=== PATIENT | female | born 1990 | race Two or more races ===

== ENCOUNTER 2024-06-16 09:00 | Inpatient (IN) | payer OTHER ==
[~2024-06-16] VITALS: Ht 157.5 cm; Wt 77.1 kg
[2024-06-16 10:39] LABS: PH,URINE 6.5 (5.0-8.0); URINE APPEARANCE Clear; URINE BILIRRUBIN Negative (NEGATIVE); URINE BLOOD Negative; URINE COLOR Yellow; URINE GLUCOSE Negative (NEGATIVE); URINE KETONE Trace (NEGATIVE); URINE LEUKOCYTE Trace; URINE NITRATE Negative; URINE PROTEIN 30 (NEGATIVE)
[2024-06-16 10:40] LABS: HEMOGLOBIN 11.4 g/dL (12.0-15.00); MEAN CELL VOLUME 91.1 fL (80.00-100.00); MEAN CORPUSCULAR HEMOGLOBIN 31.6 pg (27.00-32.0); MEAN CORPUSCULAR HGB CONC 34.6 g/dl (32.0-36.0); PLATELET COUNT 215 K/uL (150-450); RED BLOOD COUNT 3.62 M/uL (4.00-6.00); RED CELL DISTRIBUTION WIDTH 15.1 % (11.5-14.5)
[2024-06-16 10:43] LABS: URINE BACTERIA 9327.6 uL (0.0-1933); URINE EPITHELIAL CELLS 36.9 uL (0.0-38.8); URINE RBC 5.1 uL (0.0-20.8); URINE WBC 35.4 uL (0.0-23.2)
[2024-06-16 11:08] LABS: INR < 0.93; PARTIAL THROMBOPLASTIN TIME 26.5 SECONDS (22.0-34.0); PROTHROMBIN TIME 10.2 SECONDS (9.0-11.5)
[2024-06-16 12:07] LABS: URINE CAST 1.06 uL (0.0-1.40)
[2024-06-16 12:08] LABS: URINE CRYSTALS FEW /HPF
[2024-06-16 12:21] LABS: RH POSITIVE
[2024-06-17] MEDS ORDERED: PRENATAL + DHA1 EAC1 PO (11:12)
[2024-06-17 11:13] VITALS: BP 114/75
[2024-06-17] MEDS ORDERED: KETOROLAC TROMETHAMINE 60 MG VIAL IM STA (19:16)
[2024-06-17] MEDS ORDERED: PROMETHAZINE HCL 25 MG/ML AMPUL IM PRN (19:30)
[2024-06-17] MEDS ORDERED: CHLORHEXIDINE GLUCONATE 120 ML BOTTLE TOP SCH (19:30)
[2024-06-17] MEDS ORDERED: MEPERIDINE HCL/PF 50 MG/ML VIAL IM PRN (19:30)
[2024-06-17] MEDS ORDERED: RINGERS SOLUTION,LACTATED 1,000 ML IV SCH (19:30)
[2024-06-17] MEDS ORDERED: OXYTOCIN 1,000 ML IV SCH (19:30)
[2024-06-17] MEDS ORDERED: ERYTHROMYCIN BASE OPHT 1GM EACH TUBE OP ONE (20:00)
[2024-06-17] MEDS ORDERED: CEFAZOLIN SODIUM 1,000 MG VIAL IV ONE (20:00)
[2024-06-17] MEDS ORDERED: OXYTOCIN 10 UNITS/ML VIAL IV ONE (20:00)
[2024-06-17 21:09] VITALS: BP 112/69
[2024-06-17 21:09] LABS: HEMATOCRIT 34.4 % (36.0-45.00); HEMOGLOBIN 12.1 g/dL (12.0-15.00); MEAN CELL VOLUME 88.8 fL (80.00-100.00); MEAN CORPUSCULAR HEMOGLOBIN 31.2 pg (27.00-32.0); MEAN CORPUSCULAR HGB CONC 35.1 g/dl (32.0-36.0); PLATELET COUNT 199 K/uL (150-450); RED BLOOD COUNT 3.87 M/uL (4.00-6.00); RED CELL DISTRIBUTION WIDTH 15.2 % (11.5-14.5)
[2024-06-18 01:22] VITALS: BP 109/58
[2024-06-18] MEDS ORDERED: ACETAMINOPHEN 500 MG GEL..CAP PO PRN (08:15)
[2024-06-18] MEDS ORDERED: OxyCODONE HCL/APAP UD (PERCOCET) PO PRN (09:00)
[2024-06-18 10:02] VITALS: BP 102/62; O2SAT 97
[2024-06-18 16:09] VITALS: BP 114/62
[2024-06-19 01:08] VITALS: BP 118/75
[2024-06-19 09:02] VITALS: BP 115/79
[2024-06-19 17:13] VITALS: BP 115/75
[2024-06-20 01:18] VITALS: BP 106/66
[2024-06-20 08:54] VITALS: BP 97/53
[2024-06-20] MEDS ORDERED: IBUPROFEN800 MG PO (09:22)
== END 2024-06-20 14:30 | disposition home or self-care (01) | DRG 785 ==
LOC: OB/GYN 06-17 09:00 → O/R 06-17 10:30 → OB/GYN 06-17 18:39
PROVIDERS: ADMIT Obstetrics & Gynecology; ATTEND Obstetrics & Gynecology
PROC: 0UB70ZZ Excision of Bilateral Fallopian Tubes, Open Approach (ICD-10-PCS; 2024-06-17)
PROC: 4A1HXCZ Monitoring of Products of Conception, Cardiac Rate, External Approach (ICD-10-PCS; 2024-06-17)
PROC: 10D00Z1 Extraction of Products of Conception, Low, Open Approach (ICD-10-PCS; principal; 2024-06-17 17:15)
DX: O34.211 Maternal care for low transverse scar from previous cesarean delivery (principal); Z30.2 Encounter for sterilization; Z37.0 Single live birth; Z20.822 Contact with and (suspected) exposure to COVID-19

== ENCOUNTER 2024-06-23 12:53 | Emergency (ER) | payer OTHER ==
[~2024-06-23] VITALS: Ht 157.5 cm; Wt 72.1 kg
[~2024-06-23 12:53] MED LIST: IBUPROFEN800 MG PO; PRENATAL + DHA1 EAC1 PO
[2024-06-23] MEDS ORDERED: ACETAMINOPHEN 500 MG GEL..CAP PO ONE (15:15)
[2024-06-23 15:41] LABS: HEMATOCRIT 34.9 % (36.0-45.00); HEMOGLOBIN 11.8 g/dL (12.0-15.00); MEAN CELL VOLUME 90.9 fL (80.00-100.00); MEAN CORPUSCULAR HEMOGLOBIN 30.8 pg (27.00-32.0); MEAN CORPUSCULAR HGB CONC 33.9 g/dl (32.0-36.0); PLATELET COUNT 271 K/uL (150-450); RED BLOOD COUNT 3.84 M/uL (4.00-6.00); RED CELL DISTRIBUTION WIDTH 15.2 % (11.5-14.5)
[2024-06-23 15:52] LABS: URINE APPEARANCE Cloudy; URINE BILIRRUBIN Negative (NEGATIVE); URINE BLOOD Large; URINE COLOR Orange; URINE GLUCOSE Negative (NEGATIVE); URINE KETONE Negative (NEGATIVE); URINE LEUKOCYTE Small; URINE NITRATE Negative; URINE UROBILINOGEN 0.2 E.U./dl
[2024-06-23 15:53] LABS: URINE EPITHELIAL CELLS 52.5 uL (0.0-38.8); URINE WBC 177.3 uL (0.0-23.2)
[2024-06-23 15:54] LABS: CALCIUM 9.6 mg/dL (8.5-10.1); GFR 64.67; POTASSIUM 4.09 mEq/L (3.5-5.1)
[2024-06-23 16:33] LABS: URINE CAST 0.61 uL (0.0-1.40); URINE PROTEIN 100 (NEGATIVE)
[2024-06-23] MEDS ORDERED: MACROBID 100 M100 MG PO (17:23)
== END 2024-06-23 17:59 ==
LOC: ER 12:55
PROVIDERS: Nurse Practitioner Family
DX: N39.0 Urinary tract infection, site not specified (principal); R35.0 Frequency of micturition; Z20.822 Contact with and (suspected) exposure to COVID-19